=== PATIENT | female | born 1960 | race Caucasian/White ===

== ENCOUNTER 2018-10-11 05:21 | Day surgery (SDC) | payer OTHER ==
[2018-10-02 13:02] LABS: HEMATOCRIT 39.4 % (36.0-47.0); HEMOGLOBIN 13.8 g/dL (12.0-15.5); MEAN CORPUSCULAR HEMOGLOBIN 30.3 pg (27.0-33.4); MEAN CORPUSCULAR VOLUME 87 fl (80-97); PLATELET COUNT 236 10^3/uL (150-450); RED BLOOD COUNT 4.55 10^6/uL (3.72-5.28); RED CELL DISTRIBUTION WIDTH 14.4 % (11.5-14.0); WHITE BLOOD COUNT 7.4 10^3/uL (4.0-10.5)
[2018-10-02 13:12] LABS: APPEARANCE,URINE SLIGHTLY-CLOUDY; BILIRUBIN,URINE NEGATIVE (NEGATIVE); COLOR,URINE YELLOW; GLUCOSE, URINE NEGATIVE (NEGATIVE); KETONES,URINE NEGATIVE (NEGATIVE); LEUKOCYTE ESTERASE,URINE LARGE (NEGATIVE); NITRITE,URINE NEGATIVE (NEGATIVE); PROTEIN,URINE NEGATIVE (NEGATIVE); UROBILINOGEN,URINE NEGATIVE mg/dL (<2.0)
[2018-10-02 13:35] LABS: ALANINE AMINOTRANSFERASE 18 U/L (9-52); ALBUMIN 4.4 g/dL (3.5-5.0); ALKALINE PHOSPHATASE 49 U/L (38-126); ANION GAP 9 (5-19); ASPARTATE AMINO TRANSFERASE 29 U/L (14-36); BILIRUBIN,DIRECT 0.3 mg/dL (0.0-0.4); BILIRUBIN,TOTAL 0.7 mg/dL (0.2-1.3); BLOOD UREA NITROGEN 14 mg/dL (7-20); CALCIUM 10.1 mg/dL (8.4-10.2); CARBON DIOXIDE 29 mmol/L (22-30); CHLORIDE 101 mmol/L (98-107); GLUCOSE 96 mg/dL (75-110); POTASSIUM 4.1 mmol/L (3.6-5.0); SODIUM 138.5 mmol/L (137-145); TOTAL PROTEIN 7.4 g/dL (6.3-8.2)
--- NOTE | 2018-10-03 09:31 | EKG REPORT ---
SEVERITY:- ABNORMAL ECG - SINUS RHYTHM PROBABLE LEFT ATRIAL ABNORMALITY LEFT AXIS DEVIATION LVH WITH SECONDARY REPOLARIZATION ABNORMALITY : Confirmed by: Kathryn Domínguez 03-Oct-2018 09:30:39
[~2018-10-11 05:21] MED LIST: CEFAZOLIN 1 GM/D5W RTU 1 GM/50 ML RTUPB IV ONE; CEFAZOLIN 1 GM/D5W RTU 1 GM/50 ML RTUPB IV PRN; LACTATED RINGERS 1000 ML IV PRN; LIDOCAINE 0.5% INJ-PF (5 MG/ML) 50 ML SDV SUBCUT PRN
[2018-10-11] MEDS ORDERED: MIDAZOLAM 2 MG/2 ML INJ ONE (07:02)
[2018-10-11] MEDS ORDERED: FENTANYL CITRATE INJ/PF 100 MCG/2 ML AMPUL ONE (07:02)
[2018-10-11] MEDS ORDERED: HYDROMORPHONE HCL INJ/PF 2 MG/ML AMPULE ONE (07:02)
[2018-10-11] MEDS ORDERED: PROPOFOL INJ 200 MG/20 ML VIAL IV ONE (07:03)
[2018-10-11] MEDS ORDERED: LIDOCAINE 2% INJ (20 MG/ML) 20 ML MDV ONE (07:03)
[2018-10-11] MEDS ORDERED: ACETAMINOPHEN 1,000 MG/100 ML RTUPB IV ONE (07:03)
[2018-10-11] MEDS ORDERED: LIDOCAINE 1%/EPINEPHRINE INJ 20 ML VIAL ONE (07:12)
[2018-10-11] MEDS ORDERED: MORPHINE SULFATE 10 MG/ML INJ IV PRN (07:54)
[2018-10-11] MEDS ORDERED: DIPHENHYDRAMINE HCL 50 MG/ML VIAL IV PRN (07:54)
[2018-10-11] MEDS ORDERED: FENTANYL CITRATE INJ/PF 100 MCG/2 ML AMPUL IV PRN ×3 (07:54)
[2018-10-11] MEDS ORDERED: MEPERIDINE HCL/PF INJ 25 MG/1 ML DISP.SYRIN IV PRN (07:54)
[2018-10-11] MEDS ORDERED: ONDANSETRON HCL INJ/PF 4 MG/2 ML SDV IV PRN (07:54)
[2018-10-11] MEDS ORDERED: OXYCODONE-ACETAMINOPHEN 5-325 MG TABLET PO PRN (08:57)
[2018-10-11] MEDS ORDERED: IBUPROFEN 800 MG TABLET PO PRN (08:57)
--- NOTE | 2018-10-11 09:43 | OPERATIVE REPORT E ---
Operative Report NAME: BJ MCKEE : 1960 AGE: 58Y DATE OF SURGERY: 10/11/2018 ROOM: PREOPERATIVE DIAGNOSIS: Stress urinary incontinence. POSTOPERATIVE DIAGNOSIS: Stress urinary incontinence. SURGEON: MELISSA SULLIVAN M.D. PROMPT CARE RN: Dr. Galicia ANESTHESIA: Dr. Leija with general. FINDINGS: Normal bladder with no evidence of perforation on cystoscopy. Postvoid residual of less than 5 mL of urine. ESTIMATED BLOOD LOSS: 30 mL. SPECIMENS REMOVED: None. PROCEDURE: Placement of a transobturator tape. PROCEDURE IN DETAIL: The patient was taken to the operating room and prepared and draped in a normal sterile fashion in the dorsal lithotomy position. Under sterile conditions, a catheter was placed to gravity. A weighted speculum was placed in the posterior vagina and the vaginal mucosa was grasped just approximately 2 cm below the urethra with Allis clamps and the mucosa was then hydrodissected using local anesthesia of lidocaine with epi. An incision was made following this plane just approximately 2 cm below the urethra. The bladder was then dissected away sharply and bluntly using Metzenbaum's and the obturator space was located via palpation on both sides. The Odimax obturator tape was then placed using sporting goods salesperson guidelines, beginning with marking of the obturator space on the skin with a surgical marker. First, the left obturator needle was placed through the obturator space guiding with thumb and forefinger. This was repeated on the right with some difficulty. As the perforation into the vagina was noted, needle was backed out and then repositioned just underneath the bladder in the appropriate space that had previously been dissected. The tape was then hooked onto both obturator needles and the tape was placed, pulling the obturator needles back through the space that we had created. A Lulú clamp was placed between the tape and the urethra for guidance. A cystoscopy was performed and it was noted that there was no evidence of perforation. After influx of approximately 200 mL of sterile water, the bladder appeared free of any injury. The obturator needles were then removed and the tape was trimmed appropriately, and again, with no tension using the Lulú clamp as a guide. The Lulú guide was then removed. The tape was reinspected and found to be adequate and without tension. The tape was trimmed at the skin incision sites to provide adequate support and the skin at the vaginal mucosa was closed using a running stitch of 2-0 Vicryl. The patient tolerated the procedure well. Sponge, lap, and needle counts were correct x2 and the patient was taken to recovery in stable condition. DICTATING PHYSICIAN: MELISSA SULLIVAN M.D. [id number] PHY#: [id number] ID: [id number] JOB#: [id number] ACCT: [id number] cc:MELISSA SULLIVAN M.D. >
[2018-10-11 10:47] VITALS: BP 119/72
--- NOTE | 2018-10-11 12:34 | EKG REPORT ---
SEVERITY:- ABNORMAL ECG - SINUS RHYTHM LEFT ANTERIOR FASCICULAR BLOCK LEFT VENTRICULAR HYPERTROPHY : Confirmed by: Beverley Moss MD 11-Oct-2018 12:34:22
[2018-10-11] MEDS ORDERED: ONDANSETRON HCL INJ/PF 4 MG/2 ML SDV ONE (15:24)
[2018-10-11] MEDS ORDERED: SUCCINYLCHOLINE CHLORIDE INJ 200 MG/10 ML VIAL ONE (15:24)
[2018-10-11] MEDS ORDERED: DEXAMETHASONE SOD PHOSPHATE INJ 4 MG/1 ML VIAL ONE (15:24)
[2018-10-11] MEDS ORDERED: KETOROLAC TROMETHAMINE 60 MG/2 ML SDV ONE (15:24)
[2018-10-11] MEDS ORDERED: ROCURONIUM BROMIDE INJ 50 MG/5 ML VIAL IV ONE (15:24)
== END 2018-10-11 10:45 | disposition home or self-care (01) ==
LOC: OROUT 05:21
PROVIDERS: ATTEND Obstetrics & Gynecology
DX: N39.3 Stress incontinence (female) (male) (principal); I10 Essential (primary) hypertension; Z79.899 Other long term (current) drug therapy
CPT/HCPCS: 93005 ×2; 86900; 86901; 36415 ×3; 86850; 84132; 85027; 80053; 81001; 93010 ×2; 57288; C1763; J2250; J3490 ×3; J0690; J1100; J1885; J1170; J0330; J2405; J2704; J0131; 860; J3010